=== PATIENT | female | born 1985 | race Caucasian/White ===

== ENCOUNTER → 2017-01-11 | Outpatient (CLI) | payer BC ==
[~2017-01-11] MED LIST: COLACE-DPS100 MG PO; FEOSOL-DPS325 MG PO; MOTRIN-DPS800 MG PO; NIPPLECREAM TP; PERCOCET 5-3251 EACH PO; PRENATAL VIT1 TAB PO
== END | disposition home or self-care (01) ==
LOC: RAD.S 01-10 13:00
DX: R19.09 Other intra-abdominal and pelvic swelling, mass and lump (principal)